=== PATIENT | female | born 1960 | race Caucasian/White ===

== ENCOUNTER 2021-02-07 01:18 | Emergency (ER) | payer OTHER ==
[~2021-02-07] VITALS: Ht 144.8 cm; Wt 40.8 kg
[2021-02-07] MEDS ORDERED: ELIQUIS5 MG PO (01:32)
[2021-02-07] MEDS ORDERED: BUDESONIDE0.25 MG/2 (01:32)
[2021-02-07] MEDS ORDERED: PROAIR HFA8.5 GM INH (01:32)
[2021-02-07] MEDS ORDERED: DORYX MPC120 MG PO (01:32)
[2021-02-07] MEDS ORDERED: METOCLOPRAM5 MG/5 M3 PO (01:33)
[2021-02-07] MEDS ORDERED: FUROSEMIDE 40 M40 MG PO (01:33)
[2021-02-07 02:34] VITALS: BP 101/52
== END 2021-02-07 02:34 | disposition home or self-care (01) ==
LOC: M.ERS 01:18
DX: R60.9 Edema, unspecified (principal); Z98.890 Other specified postprocedural states; Z90.710 Acquired absence of both cervix and uterus; Z79.51 Long term (current) use of inhaled steroids; Z79.1 Long term (current) use of non-steroidal anti-inflammatories (NSAID); Z79.891 Long term (current) use of opiate analgesic; Z79.899 Other long term (current) drug therapy; Z88.0 Allergy status to penicillin